=== PATIENT | male | born 1940 | race African-American/Black ===

== ENCOUNTER → 2016-03-15 09:02 | Outpatient (CLI) | payer MEDICARE, OTHER ==
[2015-03-14 15:20] VITALS: BMI 19.5
[~2016-03-15 09:02] MED LIST: BAYER CHEWABLE81 MG PO; COREG 3.1253.125 MG GT; HYDROCHLOROTHIA25 MG PO; IPRAT-ALBUT 0.5-3 ML UPD; KLOR-CON M2020 MEQ PO; LASIX40 MG PO; LISINOPRIL2.5 MG PO; METOLAZONE2.5 MG PO; PACERONE200 MG PO; PRAVACHOL20 MG PO
== END | disposition home or self-care (01) ==
LOC: D.CT 09:02
DX: Z85.118 Personal history of other malignant neoplasm of bronchus and lung (principal)

== ENCOUNTER → 2016-09-09 12:32 | Outpatient (CLI) | payer MEDICARE, OTHER ==
[2015-03-14 15:20] VITALS: BMI 19.5
== END | disposition home or self-care (01) ==
LOC: D.CT 09-02 09:30
DX: C34.12 Malignant neoplasm of upper lobe, left bronchus or lung (principal)

== ENCOUNTER → 2017-04-03 09:36 | Outpatient (CLI) | payer MEDICARE, OTHER ==
[2015-03-14 15:20] VITALS: BMI 19.5
== END | disposition home or self-care (01) ==
LOC: D.CT 09:36
DX: C34.12 Malignant neoplasm of upper lobe, left bronchus or lung (principal); D64.9 Anemia, unspecified; D63.1 Anemia in chronic kidney disease

== ENCOUNTER → 2017-08-11 09:06 | Outpatient (CLI) | payer MEDICARE, OTHER ==
[2015-03-14 15:20] VITALS: BMI 19.5
== END | disposition home or self-care (01) ==
LOC: D.RAD 08-08 08:00
DX: C34.12 Malignant neoplasm of upper lobe, left bronchus or lung (principal)